=== PATIENT | female | born 1995 | race Caucasian/White ===

== ENCOUNTER 2016-11-28 23:19 | Emergency (ER) | payer MEDICAID ==
[~2016-11-28] VITALS: Ht 170.2 cm; Wt 54.6 kg
[2016-11-29 01:01] LABS: HEMOGLOBIN 12.8 g/dL (11.7-16.4)
[2016-11-29 01:13] LABS: ASPARTATE AMINO TRANSFERASE 9 U/L (15-37); BLOOD UREA NITROGEN 13 mg/dL (7-18)
[2016-11-29 03:43] VITALS: BP 95/83
== END 2016-11-29 03:46 | disposition home or self-care (01) ==
LOC: ED 11-29 02:52
DX: O20.0 Threatened abortion (principal); O23.11 Infections of bladder in pregnancy, first trimester; Z88.0 Allergy status to penicillin; Z3A.01 Less than 8 weeks gestation of pregnancy
CPT/HCPCS: 36415; 76801; 80053; 81001; 84702; 85025; 87086

== ENCOUNTER 2016-12-25 14:51 | Emergency (ER) | payer MEDICAID ==
[~2016-12-25] VITALS: Ht 172.7 cm; Wt 52.8 kg
[2016-12-25] MEDS ORDERED: ONDANSETRON 2MG/ML, 2ML IVPush ONE (15:30)
[2016-12-25] MEDS ORDERED: SODIUM CHLORIDE 0.9% 1,000ML IVBOLUS ONE (15:30)
[2016-12-25 16:07] LABS: BLOOD UREA NITROGEN 11 mg/dL (7-18)
[2016-12-25 16:25] LABS: ASPARTATE AMINO TRANSFERASE 12 U/L (15-37)
[2016-12-25] MEDS ORDERED: ACETAMINOPHEN 325 MG TABLET PO ONE (17:00)
[2016-12-25] MEDS ORDERED: ACETAMINOPHEN 325 MG TABLET ONE (17:04)
[2016-12-25 17:10] VITALS: BP 121/80
== END 2016-12-25 18:34 | disposition home or self-care (01) ==
LOC: ED 17:14
DX: O23.41 Unspecified infection of urinary tract in pregnancy, first trimester (principal); N30.90 Cystitis, unspecified without hematuria; R10.32 Left lower quadrant pain
CPT/HCPCS: 36415; 76801; 80053; 81001; 84702; 85025; 87086

== ENCOUNTER 2017-04-09 19:21 | Observation (INO) | payer MEDICAID ==
[~2017-04-09] VITALS: Ht 172.7 cm; Wt 61.8 kg
[2017-04-09] MEDS ORDERED: PREN-59 PO (19:40)
[2017-04-09 21:41] LABS: PATH.CAST-FLAG NOT PRESENT; SPERM-FLAG NOT PRESENT; SRC-FLAG NOT PRESENT; XTAL-FLAG NOT PRESENT; YLC-FLAG NOT PRESENT
[2017-04-09] MEDS ORDERED: CEPHALEXIN 500 MG CAPSULE PO ONE (22:30)
== END 2017-04-09 22:52 | disposition home or self-care (01) ==
LOC: LDOP 19:21 → LDIP 21:00
PROVIDERS: ADMIT Obstetrics & Gynecology Gynecology; ATTEND Obstetrics & Gynecology Gynecology
DX: O26.892 Other specified pregnancy related conditions, second trimester (principal); R10.9 Unspecified abdominal pain; O23.42 Unspecified infection of urinary tract in pregnancy, second trimester; Z3A.25 25 weeks gestation of pregnancy
CPT/HCPCS: 36415; 59025; 76857; 81001; 82731; 87086; 99211; G0378; G0463

== ENCOUNTER 2018-07-14 12:21 | Emergency (ER) | payer MEDICAID ==
[~2018-07-14] VITALS: Ht 172.7 cm; Wt 60.6 kg
[~2018-07-14 12:21] MED LIST: PREN-3 PO; PREN-59 PO
[2018-07-14 12:22] VITALS: BP 121/76
[2018-07-14 13:00] LABS: BASOPHILS # (AUTO) 0.04 x10^3/uL (0-0.1); BASOPHILS % (AUTO) 1 % (0-1); EOSINOPHILS # (AUTO) 0.11 x10^3/uL (0-0.4); EOSINOPHILS % (AUTO) 2 % (1-7); LYMPHOCYTES # (AUTO) 2.06 x10^3/uL (1-3.4); LYMPHOCYTES % (AUTO) 30 % (22-44); MD NO; MEAN CORPUSCULAR HEMOGLOBIN 28.8 pg (27.0-34.8); MEAN CORPUSCULAR HGB CONC 33.4 g/dL (32.4-35.8); MEAN CORPUSCULAR VOLUME 86.3 fL (80-100); MEAN PLATELET VOLUME 9.1 fL (7.4-10.4); MONOCYTES # (AUTO) 0.37 x10^3/uL (0.2-0.8); MONOCYTES % (AUTO) 5 % (2-9); NEUTROPHILS # (AUTO) 4.34 x10^3/uL (1.8-6.8); NEUTROPHILS % (AUTO) 63 % (42-75); PLATELET COUNT 212 x10^3/uL (130-400); RED CELL DISTRIBUTION WIDTH 13.5 % (9.6-15.2)
[2018-07-14] MEDS ORDERED: MAALOX/HYOSCYAMINE/LIDOCAINE 45 ML BTL PO ONE (13:00)
[2018-07-14] MEDS ORDERED: ONDANSETRON ODT 4 MG PO ONE (13:00)
[2018-07-14 13:13] LABS: ALANINE AMINOTRANSFERASE 15 U/L (12-78); ALBUMIN 3.6 g/dL (3.4-5.0); ANION GAP 5 mmol/L (5-15); CALCIUM 8.1 mg/dL (8.5-10.1); CHLORIDE 111 mmol/L (98-107); CREATININE 0.65 mg/dL (0.55-1.02)
[2018-07-14] MEDS ORDERED: MAALOX/HYOSCYAMINE/LIDOCAINE 45 ML BTL ONE (13:14)
[2018-07-14] MEDS ORDERED: ONDANSETRON ODT 4 MG ONE (13:14)
[2018-07-14 13:15] LABS: ALKALINE PHOSPHATASE 73 U/L (45-117); BILIRUBIN,TOTAL 0.4 mg/dL (0.2-1.0)
[2018-07-14 13:43] LABS: HCG UR SG 1.013 (1.003-1.030); MICROSCOPIC AUTO
[2018-07-14 13:44] LABS: CULTURE INDICATED? YES
== END 2018-07-14 14:18 | disposition home or self-care (01) ==
LOC: ED 12:45
DX: N30.00 Acute cystitis without hematuria (principal); Z87.440 Personal history of urinary (tract) infections
CPT/HCPCS: 36415; 80053; 81001; 81025; 83690; 85025; 87086; 99283; Q0162

== ENCOUNTER 2018-07-17 14:20 | Emergency (ER) | payer MEDICAID ==
[~2018-07-17] VITALS: Ht 170.2 cm; Wt 61.1 kg
[2018-07-17 16:11] LABS: BASOPHILS # (AUTO) 0.05 x10^3/uL (0-0.1); BASOPHILS % (AUTO) 1 % (0-1); EOSINOPHILS # (AUTO) 0.16 x10^3/uL (0-0.4); EOSINOPHILS % (AUTO) 3 % (1-7); LYMPHOCYTES # (AUTO) 2.39 x10^3/uL (1-3.4); LYMPHOCYTES % (AUTO) 42 % (22-44); MD NO; MEAN CORPUSCULAR HEMOGLOBIN 28.3 pg (27.0-34.8); MEAN CORPUSCULAR HGB CONC 32.5 g/dL (32.4-35.8); MEAN CORPUSCULAR VOLUME 87.1 fL (80-100); MEAN PLATELET VOLUME 9.1 fL (7.4-10.4); MONOCYTES # (AUTO) 0.35 x10^3/uL (0.2-0.8); MONOCYTES % (AUTO) 6 % (2-9); NEUTROPHILS # (AUTO) 2.72 x10^3/uL (1.8-6.8); NEUTROPHILS % (AUTO) 48 % (42-75); PLATELET COUNT 223 x10^3/uL (130-400); RED BLOOD COUNT 4.82 x10^6/uL (3.82-5.3); RED CELL DISTRIBUTION WIDTH 13.4 % (9.6-15.2)
[2018-07-17 16:23] LABS: ANION GAP 8 mmol/L (5-15); CALCIUM 8.2 mg/dL (8.5-10.1); CHLORIDE 106 mmol/L (98-107); CREATININE 0.64 mg/dL (0.55-1.02)
[2018-07-17 16:27] LABS: TROPONIN I < 0.015 ng/mL (0.000-0.045)
[2018-07-17 17:02] VITALS: BP 116/72
== END 2018-07-17 17:05 | disposition home or self-care (01) ==
LOC: ED 16:35
DX: J15.9 Unspecified bacterial pneumonia (principal); R94.31 Abnormal electrocardiogram [ECG] [EKG]
CPT/HCPCS: 36415; 71046; 80048; 84484; 85025; 93005; 99284

== ENCOUNTER 2018-07-20 15:54 | Emergency (ER) | payer MEDICAID ==
[~2018-07-20] VITALS: Ht 172.7 cm; Wt 62.1 kg
[2018-07-20 15:55] VITALS: BP 115/40
== END 2018-07-20 17:38 | disposition home or self-care (01) ==
LOC: ED 16:58
DX: R09.1 Pleurisy (principal); Z87.01 Personal history of pneumonia (recurrent)
CPT/HCPCS: 71046; 99283

== ENCOUNTER 2018-11-07 22:03 | Emergency (ER) | payer MEDICAID, OTHER ==
[~2018-11-07] VITALS: Ht 172.7 cm; Wt 61.0 kg
--- NOTE | 2018-11-07 22:38 | NUR ---
FIRST CONTACT WITH PT. PT SITTING UP IN [facility], AL NOTED. PWD; RESPIRATIONS EVEN/UNLABORED. PT SPEAKING IN FULL SENTENCES WO DIFFICULTY. PT REPORTS INTERMITTENT L SIDED CHEST PRESSURE, WORSENING TODAY. L CHEST/L RIBS TENDER TO PALPATION. SOME RELIEF WITH OTC NSAIDS. HX OF BRONCHITIS, "THIS FEELS SIMILAR". DENIES PULM/CARDIAC HX. DENIES PRODUCTIVE COUGH/FEVER/TRAUMA. BP/SPO2/ECG MONITORING IN PLACE. NSR ON MONITOR. SPO2 >90% ON RA. FAMILY AT BEDSIDE.
[2018-11-07 22:59] VITALS: BP 128/87
[2018-11-07 23:06] LABS: BASOPHILS # (AUTO) 0.11 x10^3/uL (0-0.1); BASOPHILS % (AUTO) 1 % (0-1); EOSINOPHILS # (AUTO) 0.11 x10^3/uL (0-0.4); EOSINOPHILS % (AUTO) 1 % (1-7); LYMPHOCYTES # (AUTO) 2.71 x10^3/uL (1-3.4); LYMPHOCYTES % (AUTO) 29 % (22-44); MD NO; MEAN CORPUSCULAR HEMOGLOBIN 29.6 pg (27.0-34.8); MEAN CORPUSCULAR HGB CONC 33.9 g/dL (32.4-35.8); MEAN CORPUSCULAR VOLUME 87.5 fL (80-100); MEAN PLATELET VOLUME 8.6 fL (7.4-10.4); MONOCYTES # (AUTO) 0.47 x10^3/uL (0.2-0.8); MONOCYTES % (AUTO) 5 % (2-9); NEUTROPHILS # (AUTO) 5.88 x10^3/uL (1.8-6.8); NEUTROPHILS % (AUTO) 63 % (42-75); PLATELET COUNT 241 x10^3/uL (130-400); RED BLOOD COUNT 4.66 x10^6/uL (3.82-5.3); RED CELL DISTRIBUTION WIDTH 13.1 % (9.6-15.2)
[2018-11-07] MEDS ORDERED: MAALOX/HYOSCYAMINE/LIDOCAINE 45 ML BTL ONE (23:12)
--- NOTE | 2018-11-07 23:15 | NUR ---
PT MEDICATED PER EMAR FOR PAIN
[2018-11-07 23:18] LABS: ALANINE AMINOTRANSFERASE 23 U/L (12-78); ALBUMIN 3.7 g/dL (3.4-5.0); ANION GAP 5 mmol/L (5-15); CALCIUM 8.3 mg/dL (8.5-10.1); CHLORIDE 110 mmol/L (98-107); CREATININE 0.84 mg/dL (0.55-1.02)
[2018-11-07 23:22] LABS: ALKALINE PHOSPHATASE 80 U/L (45-117); BILIRUBIN,TOTAL 0.4 mg/dL (0.2-1.0); TOTAL PROTEIN 6.7 g/dL (6.4-8.2); TROPONIN I < 0.015 ng/mL (0.000-0.045)
[2018-11-07] MEDS ORDERED: MAALOX/HYOSCYAMINE/LIDOCAINE 45 ML BTL PO ONE (23:30)
--- NOTE | 2018-11-08 00:13 | NUR ---
DC EDUCATION PROVIDED, PT DEMONSTRATES UNDERSTANDING. PT AMBULATED STEADILY TO DC WITH RN AND MOTHER.
== END 2018-11-08 00:15 | disposition home or self-care (01) ==
LOC: ED 23:59
DX: K25.3 Acute gastric ulcer without hemorrhage or perforation (principal); R07.9 Chest pain, unspecified; K30 Functional dyspepsia
CPT/HCPCS: 36415; 71046; 80053; 84484; 85025; 86677; 93005; 99284

== ENCOUNTER 2019-04-04 10:06 | Emergency (ER) | payer OTHER ==
[~2019-04-04] VITALS: Ht 170.2 cm; Wt 63.7 kg
[2019-04-04 10:24] VITALS: BP 103/58
== END 2019-04-04 13:34 | disposition home or self-care (01) ==
LOC: ED 13:25
DX: N30.00 Acute cystitis without hematuria (principal)
CPT/HCPCS: 36415; 76830; 80053; 81001; 84703; 85025; 87086; 96374; 96375; 99284; J2270; J2405